=== PATIENT | male | born 1960 | race Caucasian/White ===

== ENCOUNTER 2018-05-26 14:58 | Emergency (ER) | payer OTHER ==
[~2018-05-26] VITALS: Ht 175.3 cm; Wt 117.9 kg
[~2018-05-26 14:58] MED LIST: BACTROBAN OINT22 GM TP; CEFADROXIL500 MG PO; LEXIVA; NORVIR100 MG; PRILOSEC20 MG; SINGULAIR 10MG10 MG; TRUVADA TABLET1 TAB
== END 2018-05-26 18:40 | disposition home or self-care (01) ==
LOC: ER 14:58
DX: S83.8X2A Sprain of other specified parts of left knee, initial encounter (principal); M25.462 Effusion, left knee; X50.3XXA Overexertion from repetitive movements, initial encounter; Y93.89 Activity, other specified; Y92.89 Other specified places as the place of occurrence of the external cause; Y99.8 Other external cause status

== ENCOUNTER 2019-05-08 14:29 | Emergency (ER) | payer OTHER ==
[~2019-05-08] VITALS: Ht 175.3 cm; Wt 66.2 kg
[2019-05-08] MEDS ORDERED: CANABIS MEDICINAL (14:42)
[2019-05-08] MEDS ORDERED: LOSARTAN POTASS25 MG PO (14:43)
[2019-05-08] MEDS ORDERED: PREVACID30 M1 (14:44)
[2019-05-08] MEDS ORDERED: ISENTRESS HD600 MG PO (14:44)
[2019-05-08] MEDS ORDERED: DESCOVY 200-251 EACH PO (14:44)
[2019-05-08] MEDS ORDERED: HYDROCHLOROTH12.5 MG PO (14:45)
[2019-05-08] MEDS ORDERED: VOLTAREN100 GM (14:45)
[2019-05-08] MEDS ORDERED: LEVO-T100 MCG PO (14:45)
[2019-05-08] MEDS ORDERED: METFORMIN HCL500 M3 PO (14:45)
[2019-05-08] MEDS ORDERED: LEVAQUIN500 MG PO (14:46)
== END 2019-05-08 18:52 | disposition home or self-care (01) ==
LOC: ER 14:29
DX: S30.0XXA Contusion of lower back and pelvis, initial encounter (principal); W18.39XA Other fall on same level, initial encounter; Y93.89 Activity, other specified; Y92.89 Other specified places as the place of occurrence of the external cause; Y99.8 Other external cause status

== ENCOUNTER 2019-08-25 14:12 | Emergency (ER) | payer OTHER ==
[~2019-08-25] VITALS: Ht 175.3 cm; Wt 108.9 kg
[~2019-08-25 14:12] MED LIST changes: +CANABIS MEDICINAL; +DESCOVY 200-251 EACH PO; +HYDROCHLOROTH12.5 MG PO; +ISENTRESS HD600 MG PO; +LEVAQUIN500 MG PO; +LEVO-T100 MCG PO; +LOSARTAN POTASS25 MG PO; +METFORMIN HCL500 M3 PO; +PREVACID30 M1; +VOLTAREN100 GM
== END 2019-08-25 22:47 | disposition home or self-care (01) ==
LOC: ER 14:12
DX: K57.30 Diverticulosis of large intestine without perforation or abscess without bleeding (principal); K74.69 Other cirrhosis of liver; R07.89 Other chest pain

== ENCOUNTER 2019-09-09 17:01 | Emergency (ER) | payer OTHER ==
[~2019-09-09] VITALS: Ht 175.3 cm; Wt 109.3 kg
[2019-09-09] MEDS ORDERED: FLEXERYL (17:20)
[2019-09-09] MEDS ORDERED: RELAFEN DS1000 MG (17:20)
== END 2019-09-09 21:27 | disposition home or self-care (01) ==
LOC: ER 17:01
DX: R53.1 Weakness (principal); K57.90 Diverticulosis of intestine, part unspecified, without perforation or abscess without bleeding; R10.84 Generalized abdominal pain; R50.9 Fever, unspecified

== ENCOUNTER 2019-09-23 15:56 | Emergency (ER) | payer OTHER ==
[~2019-09-23] VITALS: Ht 175.3 cm; Wt 103.4 kg
[~2019-09-23 15:56] MED LIST changes: +FLEXERYL; +RELAFEN DS1000 MG
[2019-09-23] MEDS ORDERED: PEPCID AC10 MG (16:17)
[2019-09-23] MEDS ORDERED: CIPRO500 MG/5 M (16:18)
[2019-09-23] MEDS ORDERED: LEXAPRO5 MG (16:19)
== END 2019-09-23 20:59 | disposition home or self-care (01) ==
LOC: ER 15:56
DX: B20 Human immunodeficiency virus [HIV] disease (principal); L02.216 Cutaneous abscess of umbilicus; Z03.818 Encounter for observation for suspected exposure to other biological agents ruled out; R10.84 Generalized abdominal pain

== ENCOUNTER 2019-09-27 21:25 | Inpatient (IN) | payer OTHER ==
[~2019-09-27] VITALS: Ht 175.3 cm; Wt 103.0 kg
[~2019-09-27 21:25] MED LIST changes: +CIPRO500 MG/5 M; +LEXAPRO5 MG; +PEPCID AC10 MG
[2019-09-27] MEDS ORDERED: PROTONIX40 M1 (21:45)
[2019-10-10] MEDS ORDERED: CLOTRIMAZOLE10 MG MM (15:35)
== END 2019-10-10 15:47 | disposition home or self-care (01) | DRG 923 ==
LOC: ER 21:25 → SEC-K 09-28 09:19 → SURH 09-28 09:19 → MEDJ 09-29 16:32
PROVIDERS: ADMIT Internal Medicine; ATTEND Internal Medicine
PROC: BW21ZZZ Computerized Tomography (CT Scan) of Abdomen and Pelvis (ICD-10-PCS; 2019-09-28)
PROC: BW30YZZ Magnetic Resonance Imaging (MRI) of Abdomen using Other Contrast (ICD-10-PCS; 2019-09-29)
PROC: B24BZZZ Ultrasonography of Heart with Aorta (ICD-10-PCS; 2019-09-30)
PROC: BW3GYZZ Magnetic Resonance Imaging (MRI) of Pelvic Region using Other Contrast (ICD-10-PCS; 2019-10-01)
PROC: 3E0F7GC Introduction of Other Therapeutic Substance into Respiratory Tract, Via Natural or Artificial Opening (ICD-10-PCS; 2019-10-01)
PROC: 0FB13ZX Excision of Right Lobe Liver, Percutaneous Approach, Diagnostic (ICD-10-PCS; principal; 2019-10-05)
DX: T85.79XS Infection and inflammatory reaction due to other internal prosthetic devices, implants and grafts, sequela (principal); L03.311 Cellulitis of abdominal wall; C22.8 Malignant neoplasm of liver, primary, unspecified as to type; L02.216 Cutaneous abscess of umbilicus; B37.0 Candidal stomatitis; I10 Essential (primary) hypertension; I08.1 Rheumatic disorders of both mitral and tricuspid valves; J45.20 Mild intermittent asthma, uncomplicated; E66.09 Other obesity due to excess calories; E03.8 Other specified hypothyroidism; E11.9 Type 2 diabetes mellitus without complications; Z79.4 Long term (current) use of insulin; Z21 Asymptomatic human immunodeficiency virus [HIV] infection status; Y83.8 Other surgical procedures as the cause of abnormal reaction of the patient, or of later complication, without mention of misadventure at the time of the procedure; Z20.828 Contact with and (suspected) exposure to other viral communicable diseases; B18.2 Chronic viral hepatitis C; K74.69 Other cirrhosis of liver
CPT/HCPCS: 72198; 74182

== ENCOUNTER 2022-04-06 14:35 | Emergency (ER) | payer OTHER ==
[~2022-04-06] VITALS: Ht 167.6 cm; Wt 86.2 kg
[~2022-04-06 14:35] MED LIST changes: +CLOTRIMAZOLE10 MG MM; +PROTONIX40 M1
== END 2022-04-07 00:10 | disposition home or self-care (01) ==
LOC: ER 14:35
DX: R10.9 Unspecified abdominal pain (principal)

== ENCOUNTER 2022-04-09 10:33 | Inpatient (IN) | payer OTHER ==
[~2022-04-09] VITALS: Ht 170.2 cm; Wt 85.7 kg
--- NOTE | 2022-04-09 11:11 | NUR ---
PACIENTE VERBALIZA DOLOR ABDOMINAL Y REFLUJO.
--- NOTE | 2022-04-09 12:55 | NUR ---
SE ORIENTA PTE SOBRE EL TRATAMIENTO ORDENADO POR EL DR VARGAS PTE ALERTA Y ORIENTADO POR 3, RN GLENYS REALIZA MUESTRAS DE LABORATORIO Y ADMINSITRA MEDICAMENTO KLAUS ORDENADO, PTE SE MATIENE EN OBSERVACION
== END 2022-04-12 16:32 | disposition home or self-care (01) | DRG 439 ==
LOC: ER 10:33 → MEDJ 17:31
PROVIDERS: ADMIT Internal Medicine; ATTEND Internal Medicine
PROC: 02HV33Z Insertion of Infusion Device into Superior Vena Cava, Percutaneous Approach (ICD-10-PCS; principal; 2022-04-10)
PROC: BW21ZZZ Computerized Tomography (CT Scan) of Abdomen and Pelvis (ICD-10-PCS; 2022-04-10)
DX: K85.90 Acute pancreatitis without necrosis or infection, unspecified (principal); B20 Human immunodeficiency virus [HIV] disease; C22.0 Liver cell carcinoma; B19.20 Unspecified viral hepatitis C without hepatic coma; R74.8 Abnormal levels of other serum enzymes; F12.21 Cannabis dependence, in remission; F17.200 Nicotine dependence, unspecified, uncomplicated; E11.9 Type 2 diabetes mellitus without complications; I10 Essential (primary) hypertension; Z79.4 Long term (current) use of insulin